=== PATIENT | female | born 1985 | race African-American/Black ===

== ENCOUNTER 2017-10-03 08:46 | Emergency (ER) | payer MEDICAID, OTHER ==
[~2017-10-03] VITALS: Ht 152.4 cm; Wt 95.0 kg
[2017-10-03 08:48] VITALS: BP 134/76; PULSE 81; RESP 14; TEMP 97.8; O2SAT 99
--- NOTE | 2017-10-03 08:55 | PD ---
HPI Chief Complaint: Cold / Flu Symptoms Time Seen by Provider: 08:53 Travel History International Travel<30 days: No Contact w/Intl Traveler<30days: No Traveled to known affect area: No History of Present Illness HPI 32-year-old female presents to the emergency department for evaluation of cough , chest congestion, body aches, diarrhea 3 days. She has developed a sore throat and states it is difficult to swallow. Patient denies abdominal pain. She has not been nauseous vomiting. Uncertain of fever but has felt chilled. She has had no urinary symptoms. Denies any chance of . She has no other symptoms to report. [facility] Past Medical History Medical History: Denies Significant Hx ?: Not : 2 Para: 0 Past Surgical History Section: Yes Tonsillectomy: Yes Social History Alcohol Use: No Tobacco Use: No Substance Use: No Allergies-Medications (Allergen,Severity, Reaction): Coded Allergies: shellfish derived (Unverified Allergy, Severe, 10/03/17) Reported Meds & Prescriptions Reported Meds & Active Scripts Active No Active Prescriptions or Reported Medications Review of Systems Except as stated in HPI: all other systems reviewed are Neg Physical Exam Narrative GENERAL: Well nourished female patient, ambulatory and in no acute distress. SKIN: Focused skin assessment warm/dry. HEAD: Atraumatic. Normocephalic. EYES: Pupils equal and round. No scleral icterus. No injection or drainage. ENT: No nasal bleeding or discharge. Mucous membranes pink and moist. Erythema and edema of the pharynx. No exudate. NECK: Trachea midline. No JVD. Anterior cervical lymphadenopathy. CARDIOVASCULAR: Regular rate and rhythm. No murmur appreciated. RESPIRATORY: No accessory muscle use. Clear to auscultation. Breath sounds equal bilaterally. GASTROINTESTINAL: Abdomen soft, non-tender, nondistended. Hepatic and splenic margins not palpable. MUSCULOSKELETAL: No obvious deformities. No clubbing. No cyanosis. No edema. NEUROLOGICAL: Awake and alert. No obvious cranial nerve deficits. Motor grossly within normal limits. Normal speech. PSYCHIATRIC: Appropriate mood and affect; insight and judgment normal. Data Data Last Documented VS Vital Signs Date Time Temp Pulse Resp B/P (MAP) Pulse Ox O2 Delivery O2 Flow Rate FiO2 10/03/17 09:51 10/03/17 08:48 97.8 81 14 99 Orders Orders Group A Rapid Strep Screen (10/03/17 09:02) Influenzae A/B Antigen (10/03/17 09:02) Dexamethasone Inj (Decadron Inj) (10/03/17 09:15) Strep Culture (Group A) (10/03/17 09:05) Ed Discharge Order (10/03/17 09:32) MDM Medical Decision Making Medical Screen Exam Complete: Yes Emergency Medical Condition: Yes Medical Record Reviewed: Yes Differential Diagnosis Influenza versus strep pharyngitis versus common cold versus gastroenteritis Narrative Course 32-year-old female presents to emergency department for evaluation. Patient has significantly edematous pharynx, otherwise exam is benign. Patient is given Decadron for this. Influenza screen is negative. Strep rapid strep screen is negative. This is likely a flulike illness. Patient is discharged home to follow-up with primary care provider and return immediately with any acute worsening of symptoms. Diagnosis Primary Impression: Flu-like symptoms Referrals: Primary Care Physician Patient Instructions: General Instructions, Influenza (ED) Departure Forms: Tests/Procedures, Work Release Enter return to work date: Oct 06, 2017 Additional Instructions: Rest Maintain adequate oral hydration Follow-up with a primary care provider Tylenol OR Ibuprofen as directed on the package as needed for fever or pain Return immediately with any acute worsening of symptoms Med/Other Pt SpecificInfo: No Change to Meds Scripts No Active Prescriptions or Reported Meds Disposition: 01 DISCHARGE HOME Condition: Stable Emilie Hazel APRIL Oct 03, 2017 08:55
[2017-10-03] MEDS ORDERED: DEXAMETHASONE SOD PHOS 4 MG/ML VIAL IM ONE (09:15)
== END 2017-10-03 09:51 | disposition home or self-care (01) ==
LOC: NEPD 08:46
DX: R05 Cough (principal); J02.9 Acute pharyngitis, unspecified; R09.89 Other specified symptoms and signs involving the circulatory and respiratory systems; R19.7 Diarrhea, unspecified
CPT/HCPCS: 87081; 87804; 87880; 96372; 99282; J1100